=== PATIENT | female | born 1975 | race Two or more races ===

== ENCOUNTER 2021-03-11 21:24 | Emergency (ER) | payer SELFPAY ==
[~2021-03-11] VITALS: Ht 167.6 cm; Wt 81.7 kg
== END 2021-03-11 22:09 | disposition home or self-care (01) ==
LOC: ER 21:24
DX: S91.331A Puncture wound without foreign body, right foot, initial encounter (principal); Z23 Encounter for immunization; W45.0XXA Nail entering through skin, initial encounter
CPT/HCPCS: 90471; 90714; 99282-25; A9270

== ENCOUNTER → 2023-07-19 | Outpatient (CLI) | payer OTHER ==
[2023-07-19 15:52] LABS: BASOPHILS ABSOLUTE AUTO 0.04 K/mm3 (0.00-0.23); BASOPHILS PERCENT AUTO 1 % (0-2); EOSINOPHILS PERCENT AUTO 1 % (0-6); Hematocrit 41.7 % (33.0-51.0); Hemoglobin 14.5 g/dL (11.5-16.0); IMMATURE GRAN ABSOLUTE AUTO 0.02 K/mm3 (0.00-0.10); IMMATURE GRAN PERCENT AUTO 0 % (0-1); LYMPHOCYTES ABSOLUTE AUTO 1.98 K/mm3 (0.84-5.20); LYMPHOCYTES PERCENT AUTO 24 % (21-46); MONOCYTES ABSOLUTE AUTO 0.61 K/mm3 (0.16-1.47); MONOCYTES PERCENT AUTO 7 % (4-13); Mean Corpuscular HGB Conc 34.8 g/dL (31.5-36.5); Mean Corpuscular Volume 86 fL (80-100); Mean Platelet Volume 10.5 fL (9.1-12.4); NEUTROPHILS ABSOLUTE AUTO 5.47 K/mm3 (1.96-9.15); NEUTROPHILS PERCENT AUTO 67 % (41-73); Platelet Count 284 K/mm3 (150-400); RDW Coefficient Variation 13.5 % (11.7-14.2); RDW Standard Deviation 41.8 fL (35.1-46.3); Red Blood Cell Count 4.83 M/mm3 (3.80-5.20); White Blood Cell Count 8.22 K/mm3 (4.00-11.30)
[2023-07-19 16:46] LABS: Free Thyroxine 0.92 ng/dL (0.70-1.60)
[2023-07-19 16:50] LABS: Albumin, Blood 3.8 g/dL (3.4-5.0); Bilirubin, Total 1.3 mg/dL (0.1-1.0); Bun/Creatinine Ratio 22.3 (12.0-20.0); Calcium, Blood 8.8 mg/dL (8.5-10.1); Creatinine, Blood 0.58 mg/dL (0.40-1.00); Globulin, Blood 3.9 g/dL (2.2-4.0); Potassium, Blood 3.8 mmol/L (3.5-5.5); Thyroid Stimulating Hormone 2.19 uIU/mL (0.360-4.800); Total Protein, Blood 7.7 g/dL (6.4-8.2)
== END | disposition home or self-care (01) ==
LOC: LAB 15:48 → LAB SHORT 15:48
PROVIDERS: Physician Assistant Surgical
DX: R53.83 Other fatigue (principal)
CPT/HCPCS: 80053; 84439; 84443; 84481; 85025

== ENCOUNTER 2023-10-24 22:12 | Emergency (ER) | payer OTHER ==
[~2023-10-24] VITALS: Ht 162.6 cm; Wt 77.1 kg
[2023-10-24 22:54] LABS: BASOPHILS ABSOLUTE AUTO 0.07 K/mm3 (0.00-0.23); BASOPHILS PERCENT AUTO 1 % (0-2); EOSINOPHILS ABSOLUTE AUTO 0.14 K/mm3 (0.00-0.68); EOSINOPHILS PERCENT AUTO 2 % (0-6); Hematocrit 41.2 % (33.0-51.0); IMMATURE GRAN ABSOLUTE AUTO 0.01 K/mm3 (0.00-0.10); IMMATURE GRAN PERCENT AUTO 0 % (0-1); LYMPHOCYTES ABSOLUTE AUTO 2.71 K/mm3 (0.84-5.20); LYMPHOCYTES PERCENT AUTO 31 % (21-46); MONOCYTES ABSOLUTE AUTO 0.71 K/mm3 (0.16-1.47); MONOCYTES PERCENT AUTO 8 % (4-13); Mean Corpuscular HGB 29.4 pg (26.0-34.0); Mean Corpuscular Volume 87 fL (80-100); Mean Platelet Volume 10.7 fL (9.1-12.4); NEUTROPHILS ABSOLUTE AUTO 5.23 K/mm3 (1.96-9.15); NEUTROPHILS PERCENT AUTO 59 % (41-73); Platelet Count 266 K/mm3 (150-400); RDW Coefficient Variation 11.9 % (11.7-14.2); RDW Standard Deviation 38.4 fL (35.1-46.3); Red Blood Cell Count 4.76 M/mm3 (3.80-5.20); White Blood Cell Count 8.87 K/mm3 (4.00-11.30)
[2023-10-24 23:01] LABS: Source, Urine Clean Catch
[2023-10-24 23:03] LABS: Appearance, Urine Clear (Clear); Bilirubin, Urine Neg (Neg); Blood, Urine Neg (Neg); Color, Urine Yellow (P-Yellow); Glucose Qualitative, Urine Neg (Neg); Ketones, Urine Neg (Neg); Leukocyte Esterase, Urine Neg (Neg); Nitrite, Urine Neg (Neg); Protein, Urine Neg (Neg); Urobilinogen, Urine NORM (Normal)
[2023-10-24 23:13] LABS: Albumin, Blood 3.9 g/dL (3.4-5.0); Bilirubin, Total 0.6 mg/dL (0.1-1.0); Bun/Creatinine Ratio 23.9 (12.0-20.0); Calcium, Blood 8.9 mg/dL (8.5-10.1); Creatinine, Blood 0.59 mg/dL (0.40-1.00); Globulin, Blood 3.8 g/dL (2.2-4.0); Potassium, Blood 4.1 mmol/L (3.5-5.5); Total Protein, Blood 7.7 g/dL (6.4-8.2)
[2023-10-25] MEDS ORDERED: Ondansetron HCl 2 MG / ML 2ML Vial IV ONE (01:45)
[2023-10-25] MEDS ORDERED: Ketorolac Tromethamine 30mg Vial IV ONE (01:45)
[2023-10-25] MEDS ORDERED: DOCU100 PO (03:44)
[2023-10-25 04:15] VITALS: BP 108/75
== END 2023-10-25 04:18 | disposition home or self-care (01) ==
LOC: ER 22:12
PROVIDERS: Emergency Medicine
DX: K42.9 Umbilical hernia without obstruction or gangrene (principal)
CPT/HCPCS: 74177; 80053; 81003; 81025; 83690; 85025; 96374-59; 96375; 99284-25; J1885; J2405; Q9967

== ENCOUNTER → 2025-01-03 | Outpatient (CLI) | payer OTHER ==
[~2025-01-03] MED LIST: DOCU100 PO
[2025-01-03 18:59] LABS: Bacterial Vaginosis PCR Negative (NEGATIVE); Candida Group, PCR NOT DETECTED (NOT DETECT); Candida glabrata-krusei, PCR NOT DETECTED (NOT DETECT)
== END ==
LOC: LAB 15:56 → LAB SHORT 15:56
PROVIDERS: Family Medicine
DX: N89.8 Other specified noninflammatory disorders of vagina (principal)
CPT/HCPCS: 81515